=== PATIENT | male | born 1960 | race Caucasian/White ===

== ENCOUNTER 2017-12-28 04:16 | Inpatient (IN) ==
[2017-12-28] MEDS ORDERED: Naloxone 0.4 MG/ML INJ IVP PRN (07:54)
[2017-12-28] MEDS ORDERED: *HR* OxyCODONE Immed Rel 5 MG TABLET PO PRN (07:54)
[2017-12-28] MEDS ORDERED: *HR* HYDROcodone/Acet 5/325 mg TABLET PO PRN (07:54)
--- NOTE | 2017-12-28 07:56 | Internal Med History&Physical ---
Date of Encounter: 12/28/17 Time of Encounter: 08:48 Internal Medicine - H&P: HPI Chief complaint: R flank pain Admitted From: Hospital to Hospital Transfer Plans for Post Hospital Care: Home History of present illness: Mr. Vidal is a 57 year old male with no significant PMH who presented to [facility] with R flank pain associated with nausea, vomiting and diaphoresis. He reports a prior hx of kidney stones, but no intervention. He was in his usual state of health till the day of presentation to outside facility when he developed sudden R sided flank pain, radiating to the groin, severe 8-10/10, with no known aggravating or relieving factors. He reports associated nausea and vomiting, no abdominal pain, no diarrhea, no chest pain, no shortness of breath. His urine is very concentrated but he has had no nida hematuria. he denies neurologic symptoms ROS is non contributory Work up at outside facility : Leukocytosis with left shift, WBC 13, Hb stable, Chem with CHIQUI, BUN/Cr 23/1.63, BUN/Cr ratio 13. LFT unremarkable, Abd/pelvis CT: 1mm obstructing distal right ureteral 1mm with mild ureterectiasis and right renal pelvicaliectasis UA: hemarturia, , negative leukocyte esterase, negative nitrites Internal Medicine - H&P: Meds Aspirin [Lo-Dose Aspirin EC] 81 mg PO DAILY 12/28/17 [History] Glucosamn/Condroitn/C/Mn/[place] [Cvs Glucosamine Chondroit Cplt] 1 tab PO DAILY 12/28/17 [History] Multivitamin [One Daily Multivitamin] 1 tab PO DAILY 12/28/17 [History] Naproxen Sodium [Aleve] 440 mg PO DAILY 12/28/17 [History] [place]-3/Dha/Epa/Fish Oil [Fish Oil 1,000 mg Softgel] 1 cap PO DAILY 12/28/17 [ History] 3 Allergy/AdvReac Type Severity Reaction Status Date / Time No Known Allergies Allergy Verified 12/28/17 10:50 All Systems PM: A 10-system review of systems was performed and is negative for pertinent findings except as documented above in the HPI. - Constitutional Constitutional: no chills, no fever(s), no night sweats - EENT Eyes: as per HPI Ears: no ear discharge, no ear pain, no tinnitus Nose, mouth and throat: no dysphagia, no nasal discharge, no neck pain, no sore throat - Cardiovascular Cardiovascular ROS IM: no chest pain, no diaphoresis, no dyspnea, no lightheadedness, no palpitations, no syncope - Respiratory Respiratory: no cough, no dyspnea, no wheezing, no excessive phlegm production - Gastrointestinal Gastrointestinal: no abdominal pain, no diarrhea, no hematemesis, no hematochezia, no melena, no nausea, no vomiting - Genitourinary Genitourinary ROS male: as per HPI - Musculoskeletal Musculoskeletal ROS IM: no numbness, no tingling - Integumentary Integumentary IM: no rash, no unusual bruising - Neurological Neurological ROS: no confusion, no convulsions, no focal weakness, no numbness, no tingling, no tremor(s) - Hematologic/Lymphatic Hematologic/Lymphatic: no easy bruising - Constitutional General appearance: Present: A&O X 3, pleasant, no acute distress - Head Head exam: Present: atraumatic - Eye Eye exam: Present: PERRL, conjuntiva pink, sclera anicteric - ENT ENT exam: Present: mucous membranes moist - Neck Neck exam general surgery: Present: normal inspection - Respiratory Respiratory exam: Present: CTAB. Absent: accessory muscle use, rales, rhonchi, wheezes - Cardiovascular Cardiovascular exam: Present: RRR, +S1, +S2. Absent: diastolic murmur, gallop, rubs, systolic murmur - GI/Abdominal GI/Abdominal exam: Present: normal bowel sounds, soft, no peritoneal signs. Absent: distended, tenderness - Extremities Exam Extremities exam: Present: warm, radial pulses palpable and symmetrical. Absent : calf tenderness, cyanotic, pedal edema - Neurological Exam Neurological exam: Present: alert, CN II-XII intact, oriented X3, no focal deficits. Absent: pronater drift, facial droop, speech deficit - Skin Skin exam: Present: dry, intact Internal Med - H&P Results - Labs CBC & Chem 7: 12/28/17 08:17 18 08:17 - Assessment and plan (1) CHIQUI (acute kidney injury) Current Visit: Yes Status: Acute Assessment and plan: Post-renal secondary to kidney stones Continue IVF hydration Labs here show Cr 1.74, BUN 26. K acceptable Strict I/Os Avoid nephrotoxins (2) Hydronephrosis Current Visit: Yes Status: Acute Assessment and plan: Urology consult IVF and pain control Keep NPO for procedure Qualifiers: Hydronephrosis type: with ureteral calculous obstruction Qualified Code(s) : N13.2 - Hydronephrosis with renal and ureteral calculous obstruction (3) Ureteral calculus, right Current Visit: Yes Status: Acute Assessment and plan: as above - Time Spent With Patient Total time spent is greater than 50% in coordination of care (as documented) at patient's floor/unit and/or counseling patient:
[2017-12-28] MEDS ORDERED: Ondansetron 4 MG/2 ML VIAL IVP PRN (08:31)
[2017-12-28 09:02] LABS: Basophils % 0.1 %; Eosinophils % 0.2 %; Hematocrit 43.3 % (37.5-50.1); Hemoglobin 15.1 g/dL (12.9-16.9); Immature Granulocytes % 0.3 % (0-4); Lymphocytes # 1.5 K/mcL (0.6-4.6); Lymphocytes % 10.8 %; Mean Corpuscular HGB Conc 34.9 g/dL (31.6-35.5); Mean Corpuscular Hemoglobin 31.2 pg (28.0-33.3); Mean Corpuscular Volume 89.5 fL (83.0-100.0); Mean Platelet Volume 9.4 fL (9.4-12.4); Monocytes # 1.8 K/mcL (0.0-1.3); Monocytes % 12.4 %; Neutrophils # 10.8 K/mcL (1.6-8.9); Platelet Count 226 K/mcL (140-400); Red Blood Count 4.84 M/mcL (4.19-5.50); Red Cell Distribution Width 13.1 % (11.5-14.5); Segmented Neutrophils % 76.2 %
[2017-12-28] MEDS: 0.9 % Sodium Chloride 1,000 ML IVC SCH ×2 (09:18→17:59)
[2017-12-28] MEDS: OXYCODONE Oral CONC 10 MG/0.5 ML ORAL.SYG SL PRN (09:18)
[2017-12-28 09:19] LABS: Potassium 4.3 mEq/L (3.5-5.1)
[2017-12-28] MEDS: *HR* Heparin 5,000 UNIT/ML VIAL SQ SCH (16:55)
--- NOTE | 2017-12-28 18:11 | Urology - Consult Note ---
Date of Encounter: 12/28/17 Time of Encounter: 18:08 - Assessment and Plan (1) Ureteral calculus, right Current Visit: Yes Status: Acute Assessment and plan: Patient has a 1 mm distal ureteral stone. his symptoms suggest he may have passed the stone. We will recheck labs in the morning but at this time will likely cancel the surgery and the last his symptoms return overnight. The plan was to perform a ureteroscopic stone extraction in the morning. I do not feel the patient is septic or had UTI. White blood cell count elevation is likely reactive Urology CN:HPI Consult date: 12/28/17 Reason for consult Urology: Hydronephrosis History of present illness: 57-year-old male. Transfer from [facility]. 1 mm distal ureteral stone. He states he feels great at this time and believes he may have passed the stone. All pain and symptoms resolved. He is scheduled for stone extraction tomorrow morning. He does have a history of stones. Past Med Surg Social Fam HX - Past Medical History Medical history: no medical history Psychiatric history: no psych history - Past Surgical History Surgical History: no surgical history - Social History Smoking Status: Never smoker Smokeless Tobacco Status: Yes Alcohol use: none Drug use: none Medications and Allergies Aspirin [Lo-Dose Aspirin EC] 81 mg PO DAILY 12/28/17 [History] Glucosamn/Condroitn/C/Mn/[place] [Cvs Glucosamine Chondroit Cplt] 1 tab PO DAILY 12/28/17 [History] Multivitamin [One Daily Multivitamin] 1 tab PO DAILY 12/28/17 [History] Naproxen Sodium [Aleve] 440 mg PO DAILY 12/28/17 [History] [place]-3/Dha/Epa/Fish Oil [Fish Oil 1,000 mg Softgel] 1 cap PO DAILY 12/28/17 [ History] 3 Allergy/AdvReac Type Severity Reaction Status Date / Time No Known Allergies Allergy Verified 12/28/17 10:50 Review of Systems - Constitutional no chills, no fever(s) - EENT Nose, mouth and throat: no dizziness - Cardiovascular no chest pain - Respiratory no cough - Gastrointestinal no abdominal pain - Genitourinary no dysuria, no hematuria - Musculoskeletal no back pain - Integumentary no erythema - Neurological no confusion - Psychiatric no anxiety - Hematologic/Lymphatic no easy bleeding Exam Initial Vital Signs Temp Pulse Resp BP Pulse Ox 98.5 F 46 14 165/75 98 12/28/17 08:40 12/28/17 08:40 12/28/17 08:40 12/28/17 08:40 12/28/17 08:40 - General physical appearance Present: well developed, no distress - Eyes Present: PERRL, conjunctiva is clear - ENT Present: normal nares - Neck Present: no masses - Respiratory Present: normal respiratory effort - Cardiovascular Cardiovascular exam IM: RRR - Abdomen Abdomen: Present: soft - Integumentary Present: no rash, no abnormal pigmentation - Neurologic Present: normal coordination. Absent: disoriented, confused - Musculoskeletal Present: normal gait - Additional Findings No CVA tenderness Urology Results - Labs 12/28/17 08:17 12/28/17 08:17 Abnormal lab results WBC 14.2 K/mcL (4.3-11.1) H 12/28/17 08:17 Neutrophils # 10.8 K/mcL (1.6-8.9) H 12/28/17 08:17 Monocytes # 1.8 K/mcL (0.0-1.3) H 12/28/17 08:17 Carbon Dioxide 22 mEq/L (23-29) L 12/28/17 08:17 BUN 26 mg/dL (6-20) H 12/28/17 08:17 Creatinine 1.74 mg/dL (0.70-1.30) H 12/28/17 08:17 Est GFR ( Amer) 50 (> 60) L 12/28/17 08:17 Est GFR (Non-Af Amer) 41 (> 60) L 12/28/17 08:17 Glucose 114 mg/dL (70-105) H 12/28/17 08:17 Diabetes panel 12/28/17 Range/Units 08:17 Sodium 137 (136-145) mEq/L Potassium 4.3 (3.5-5.1) mEq/L Chloride 105 (98-107) mEq/L Carbon Dioxide 22 L (23-29) mEq/L BUN 26 H (6-20) mg/dL Creatinine 1.74 H (0.70-1.30) mg/dL Glucose 114 H (70-105) mg/dL Calcium 9.0 (8.6-10.3) mg/dL Calcium panel 12/28/17 Range/Units 08:17 Calcium 9.0 (8.6-10.3) mg/dL Pituitary panel 12/28/17 Range/Units 08:17 Sodium 137 (136-145) mEq/L Potassium 4.3 (3.5-5.1) mEq/L Chloride 105 (98-107) mEq/L Carbon Dioxide 22 L (23-29) mEq/L BUN 26 H (6-20) mg/dL Creatinine 1.74 H (0.70-1.30) mg/dL Glucose 114 H (70-105) mg/dL Calcium 9.0 (8.6-10.3) mg/dL Adrenal panel 12/28/17 Range/Units 08:17 Sodium 137 (136-145) mEq/L Potassium 4.3 (3.5-5.1) mEq/L Chloride 105 (98-107) mEq/L Carbon Dioxide 22 L (23-29) mEq/L BUN 26 H (6-20) mg/dL Creatinine 1.74 H (0.70-1.30) mg/dL Glucose 114 H (70-105) mg/dL Calcium 9.0 (8.6-10.3) mg/dL All other labs normal. Consult Discharge Plan - Plan Referrals: NONE,PCP [Primary Care Provider] -
--- NOTE | 2017-12-28 22:04 | Anesthesia Evaluation PreOp ---
Date of Encounter: 12/28/17 - Past History Planned Operation: Right USE Cardiac History: Denies any Significant Hx Pulmonary History: Denies Any Significant HX LUNCH COOK History: Denies Any Significant HX Other Medical History: Renal (stones, ann marie, hydronephrosis) Anesthesia History: Past Anesthesia (no surgical history) Alcohol Use: none Drug use: none Medications and Allergies Aspirin [Lo-Dose Aspirin EC] 81 mg PO DAILY 12/28/17 [History] Glucosamn/Condroitn/C/Mn/[place] [Cvs Glucosamine Chondroit Cplt] 1 tab PO DAILY 12/28/17 [History] Multivitamin [One Daily Multivitamin] 1 tab PO DAILY 12/28/17 [History] Naproxen Sodium [Aleve] 440 mg PO DAILY 12/28/17 [History] [place]-3/Dha/Epa/Fish Oil [Fish Oil 1,000 mg Softgel] 1 cap PO DAILY 12/28/17 [ History] 3 Allergy/AdvReac Type Severity Reaction Status Date / Time No Known Allergies Allergy Verified 12/28/17 10:50 - Meds/Allergy Pre-op Review Medications Reviewed: Yes Allergies Reviewed: Yes Beta Blockers on Current Med List: No Anesthesia Results - Labs 12/28/17 08:17 12/28/17 08:17 Anesthesia Exam Last Vital Signs Temp 98.5 F 12/28/17 18:38 Pulse 55 12/28/17 18:38 Resp 16 12/28/17 18:38 BP 154/71 12/28/17 18:38 Pulse Ox 94 12/28/17 18:38 Weight: 105 kg Anesthesia Assess/Plan ASA Score: 2 Anesthetic Plan: General Monitoring Plan: Standard Monitors Recovery Plan: PACU
--- NOTE | 2017-12-29 06:00 | Urology Progress Note ---
Date of Encounter: 12/29/17 Time of Encounter: 05:59 - Assessment and Plan (1) Ureteral calculus, right Current Visit: Yes Status: Acute Assessment and plan: pt believes he passed the stone. likely canceling the case this AM. waiting on BUN/CR before we make that decision. should be able to discharge if CR improves. Progress Note Subjective: feels better Narrative: pt believes he passed the stone Objective Initial Vital Signs Temp Pulse Resp BP Pulse Ox 98.5 F 46 14 165/75 98 12/28/17 08:40 12/28/17 08:40 12/28/17 08:40 12/28/17 08:40 12/28/17 08:40 - General physical appearance Present: no distress - Labs 12/28/17 08:17 12/28/17 08:17 Diabetes panel 12/28/17 Range/Units 08:17 Sodium 137 (136-145) mEq/L Potassium 4.3 (3.5-5.1) mEq/L Chloride 105 (98-107) mEq/L Carbon Dioxide 22 L (23-29) mEq/L BUN 26 H (6-20) mg/dL Creatinine 1.74 H (0.70-1.30) mg/dL Glucose 114 H (70-105) mg/dL Calcium 9.0 (8.6-10.3) mg/dL Calcium panel 12/28/17 Range/Units 08:17 Calcium 9.0 (8.6-10.3) mg/dL Pituitary panel 12/28/17 Range/Units 08:17 Sodium 137 (136-145) mEq/L Potassium 4.3 (3.5-5.1) mEq/L Chloride 105 (98-107) mEq/L Carbon Dioxide 22 L (23-29) mEq/L BUN 26 H (6-20) mg/dL Creatinine 1.74 H (0.70-1.30) mg/dL Glucose 114 H (70-105) mg/dL Calcium 9.0 (8.6-10.3) mg/dL Adrenal panel 12/28/17 Range/Units 08:17 Sodium 137 (136-145) mEq/L Potassium 4.3 (3.5-5.1) mEq/L Chloride 105 (98-107) mEq/L Carbon Dioxide 22 L (23-29) mEq/L BUN 26 H (6-20) mg/dL Creatinine 1.74 H (0.70-1.30) mg/dL Glucose 114 H (70-105) mg/dL Calcium 9.0 (8.6-10.3) mg/dL Consult Discharge Plan - Plan Referrals: NONE,PCP [Primary Care Provider] - Dexter Holden MD [Partnered Physician] -
[2017-12-29 06:01] LABS: Basophils # 0.1 K/mcL (0.0-0.2); Basophils % 0.6 %; Eosinophils # 0.1 K/mcL (0.0-0.6); Eosinophils % 0.8 %; Hematocrit 40.2 % (37.5-50.1); Immature Granulocytes % 0.3 % (0-4); Lymphocytes # 1.3 K/mcL (0.6-4.6); Lymphocytes % 12.6 %; Mean Corpuscular HGB Conc 33.3 g/dL (31.6-35.5); Mean Corpuscular Hemoglobin 30.1 pg (28.0-33.3); Mean Corpuscular Volume 90.3 fL (83.0-100.0); Mean Platelet Volume 9.6 fL (9.4-12.4); Monocytes # 1.3 K/mcL (0.0-1.3); Monocytes % 12.2 %; Neutrophils # 7.7 K/mcL (1.6-8.9); Platelet Count 190 K/mcL (140-400); Red Blood Count 4.45 M/mcL (4.19-5.50); Red Cell Distribution Width 13.1 % (11.5-14.5); Segmented Neutrophils % 73.5 %
[2017-12-29 06:03] LABS: Hemoglobin 13.4 g/dL (12.9-16.9)
[2017-12-29] MEDS: *HR* Heparin 5,000 UNIT/ML VIAL SQ SCH ×2 (06:21→18:12)
[2017-12-29 06:26] LABS: BUN/Creatinine Ratio 17 (6-26); Blood Urea Nitrogen 23 mg/dL (6-20); Calcium 8.8 mg/dL (8.6-10.3); Carbon Dioxide 23 mEq/L (23-29); Chloride 108 mEq/L (98-107); Glucose 137 mg/dL (70-105); Osmolality,Calculated 292 (280-300); Potassium 4.4 mEq/L (3.5-5.1); Sodium 138 mEq/L (136-145); eGFR For African Americans > 60 (> 60); eGFR For Non-African Americans 54 (> 60)
[2017-12-29] MEDS: Acetaminophen 325 MG TABLET PO PRN ×3 (08:17→21:58)
[2017-12-29] MEDS: Aspirin Enteric Coated 81 MG Tablet PO SCH (10:11)
[2017-12-29] MEDS: OXYCODONE Oral CONC 10 MG/0.5 ML ORAL.SYG SL PRN (13:49)
--- NOTE | 2017-12-29 16:15 | Internal Med Progress Note ---
Date of Encounter: 12/29/17 Time of Encounter: 09:35 - Assessment and plan (1) Abdominal pain Current Visit: Yes Status: Acute Assessment and plan: Seemed to have passed R ureteric stone but has recurrence of RLQ pain, states that it feels different from prior episodes of kidney stones however not relieved with miralax and BM ?appendicitis ?recurrent obstructive uropathy from residual stone, repeat CT abdo/pelvis stat Qualifiers: Abdominal location: right lower quadrant Qualified Code(s): R10.31 - Right lower quadrant pain (2) Hydronephrosis Current Visit: Yes Status: Acute Assessment and plan: CT from OSH showed distal R ureteral stone with mild R ureterectasis and pelvicaliectasis was initially scheduled for stone extraction but he may have passed it Cr, WBC improved monitor Qualifiers: Hydronephrosis type: with ureteral calculous obstruction Qualified Code(s) : N13.2 - Hydronephrosis with renal and ureteral calculous obstruction (3) Ureteral calculus, right Current Visit: Yes Status: Acute Assessment and plan: as above (4) CHIQUI (acute kidney injury) Current Visit: Yes Status: Acute Assessment and plan: improved, encourage oral intake (5) DVT prophylaxis Current Visit: Yes Status: Acute Assessment and plan: sq heparin - Time Spent With Patient Total time spent is greater than 50% in coordination of care (as documented) at patient's floor/unit and/or counseling patient: - Subjective Interval history: Did not have any pain when he was seen by urologist in the morning but he now has RLQ pain that feels different from his previous episodes of kidney stones. Sharp, non-radiating, 8/10, no aggravating/relieving factors. Lenore like he was constipated for which he tried miralax but did not have any relief yet. He was also having mild diaphoresis due to pain as well. No N/V, fever/chills. - Constitutional Vitals: Temp Pulse Resp BP Pulse Ox 97.9 F 51 18 184/95 99 12/29/17 15:38 12/29/17 15:38 12/29/17 15:38 12/29/17 15:38 12/29/17 15:38 General appearance: Present: A&O X 3, pleasant, no acute distress Exam: General: Alert and oriented, in mild distress due to pain HEENT:EOM, pupils equal, round, and reactive. Cardiovascular:Normal S1 & S2, no murmurs or gallops. No JVD. Pulse regular. Lungs:Normal breath sounds, no wheezes or crackles. Abdomen:Soft, RLQ tenderness, voluntary guarding, no rebound. Extremities:No deformity, no edema or tenderness, no joint swelling. Rest of the physical exam is non-contributory Internal Medicine: Result - Labs CBC & Chem 7: 12/29/17 05:27 12/29/17 05:27 Labs: Short CBC 12/29/17 Range/Units 05:27 WBC 10.5 (4.3-11.1) K/mcL Hgb 13.4 D (12.9-16.9) g/dL Hct 40.2 (37.5-50.1) % Plt Count 190 (140-400) K/mcL Neutrophils # 7.7 (1.6-8.9) K/mcL BMP 12/29/17 05:27 Sodium 138 Potassium 4.4 Chloride 108 H Carbon Dioxide 23 BUN 23 H Creatinine 1.36 H Glucose 137 H Calcium 8.8 Consult Discharge Plan - Plan Referrals: NONE,PCP [Primary Care Provider] - Dexter Holden MD [Partnered Physician] -
[2017-12-30] MEDS: OXYCODONE Oral CONC 10 MG/0.5 ML ORAL.SYG SL PRN (00:26)
[2017-12-30 02:25] LABS: Basophils % 0.3 %; Eosinophils # 0.1 K/mcL (0.0-0.6); Eosinophils % 0.8 %; Hematocrit 39.5 % (37.5-50.1); Hemoglobin 13.7 g/dL (12.9-16.9); Immature Granulocytes % 0.3 % (0-4); Lymphocytes # 1.6 K/mcL (0.6-4.6); Lymphocytes % 13.2 %; Mean Corpuscular HGB Conc 34.7 g/dL (31.6-35.5); Mean Corpuscular Hemoglobin 30.9 pg (28.0-33.3); Mean Corpuscular Volume 89.2 fL (83.0-100.0); Mean Platelet Volume 9.8 fL (9.4-12.4); Monocytes # 1.7 K/mcL (0.0-1.3); Monocytes % 13.9 %; Neutrophils # 8.5 K/mcL (1.6-8.9); Platelet Count 186 K/mcL (140-400); Red Blood Count 4.43 M/mcL (4.19-5.50); Red Cell Distribution Width 12.7 % (11.5-14.5); Segmented Neutrophils % 71.5 %
[2017-12-30 02:42] LABS: Calcium 8.9 mg/dL (8.6-10.3); Potassium 3.9 mEq/L (3.5-5.1)
[2017-12-30] MEDS: *HR* Heparin 5,000 UNIT/ML VIAL SQ SCH (05:25)
--- NOTE | 2017-12-30 09:34 | Urology Progress Note ---
Date of Encounter: 12/30/17 Time of Encounter: 09:33 - Assessment and Plan (1) Ureteral calculus, right Current Visit: Yes Status: Acute Assessment and plan: CT scan yesterday confirms a stone is still present. We will proceed with stone extraction today. Procedure discussed and consent signed. Progress Note Subjective: still having pain Objective Initial Vital Signs Temp Pulse Resp BP Pulse Ox 98.5 F 46 14 165/75 98 12/28/17 08:40 12/28/17 08:40 12/28/17 08:40 12/28/17 08:40 12/28/17 08:40 - General physical appearance Present: no distress - Labs 12/30/17 01:44 12/30/17 01:44 Diabetes panel 12/30/17 Range/Units 01:44 Sodium 136 (136-145) mEq/L Potassium 3.9 (3.5-5.1) mEq/L Chloride 105 (98-107) mEq/L Carbon Dioxide 25 (23-29) mEq/L BUN 18 (6-20) mg/dL Creatinine 1.58 H (0.70-1.30) mg/dL Glucose 121 H (70-105) mg/dL Calcium 8.9 (8.6-10.3) mg/dL Calcium panel 12/30/17 Range/Units 01:44 Calcium 8.9 (8.6-10.3) mg/dL Pituitary panel 12/30/17 Range/Units 01:44 Sodium 136 (136-145) mEq/L Potassium 3.9 (3.5-5.1) mEq/L Chloride 105 (98-107) mEq/L Carbon Dioxide 25 (23-29) mEq/L BUN 18 (6-20) mg/dL Creatinine 1.58 H (0.70-1.30) mg/dL Glucose 121 H (70-105) mg/dL Calcium 8.9 (8.6-10.3) mg/dL Adrenal panel 12/30/17 Range/Units 01:44 Sodium 136 (136-145) mEq/L Potassium 3.9 (3.5-5.1) mEq/L Chloride 105 (98-107) mEq/L Carbon Dioxide 25 (23-29) mEq/L BUN 18 (6-20) mg/dL Creatinine 1.58 H (0.70-1.30) mg/dL Glucose 121 H (70-105) mg/dL Calcium 8.9 (8.6-10.3) mg/dL Consult Discharge Plan - Plan Referrals: Dexter Holden MD [Partnered Physician] -
[2017-12-30] MEDS: Aspirin Enteric Coated 81 MG Tablet PO SCH (09:51)
[2017-12-30] MEDS ORDERED: Famotidine 20 MG/2 ML VIAL ONE (11:13)
[2017-12-30] MEDS ORDERED: Acetaminophen IV 1,000 MG/100 ML INFUS..BTL ONE (11:13)
--- NOTE | 2017-12-30 11:26 | Anesthesia Evaluation PreOp ---
Date of Encounter: 12/30/17 Time of Encounter: 11:30 - Past History Planned Operation: Rt USE Cardiac History: Denies any Significant Hx Pulmonary History: Denies Any Significant HX [employer] CLAIM [employer]AMINER History: Denies Any Significant HX Other Medical History: Denies Any Significant HX Anesthesia History: No Prior Anesthetic Complications Alcohol Use: none Drug use: none Medications and Allergies Aspirin [Lo-Dose Aspirin EC] 81 mg PO DAILY 12/28/17 [History] Glucosamn/Condroitn/C/Mn/[place] [Cvs Glucosamine Chondroit Cplt] 1 tab PO DAILY 12/28/17 [History] Multivitamin [One Daily Multivitamin] 1 tab PO DAILY 12/28/17 [History] Naproxen Sodium [Aleve] 440 mg PO DAILY 12/28/17 [History] [place]-3/Dha/Epa/Fish Oil [Fish Oil 1,000 mg Softgel] 1 cap PO DAILY 12/28/17 [ History] 3 Allergy/AdvReac Type Severity Reaction Status Date / Time No Known Allergies Allergy Verified 12/28/17 10:50 - Meds/Allergy Pre-op Review Medications Reviewed: Yes Allergies Reviewed: Yes Beta Blockers on Current Med List: No Anesthesia Results - Labs 12/30/17 01:44 12/30/17 01:44 Anesthesia Exam O2 Sat Weight 105.75 kg O2 Sat by Pulse Oximetry 95 O2 Sat by Pulse Oximetry 96 O2 Sat by Pulse Oximetry 97 O2 Sat by Pulse Oximetry 98 O2 Sat by Pulse Oximetry 99 Vital Signs Temp Pulse Resp BP Pulse Ox 98.5 F 46 14 165/75 98 12/28/17 08:40 12/28/17 08:40 12/28/17 08:40 12/28/17 08:40 12/28/17 08:40 Height: 6'1 Weight: 233 lbs NPO (# of Hours): MN Pain Scale: 0 - HEENT Pupil (Motor): Pupils equal, EOMI Mallampati: II Teeth: Normal Oral Opening: Greater than 3 - [employer] CLAIM EXAMINER LOC: Oriented [employer] CLAIM EXAMINER Motor: Normal RUE, Normal LUE, Normal RLE, Normal LLE, Normal Face [employer] CLAIM [employer]AMINER Sensory: Normal: RUE, LUE, RLE, LLE, Face - Cardiac Rhythm: Regular Murmur: None JVD: No Carotid Bruit: No - Pulmonary Breath Sounds: bilateral Clear Respiratory Effort: Symmetrical Anesthesia Assess/Plan ASA Score: 1 Modified Clifford Scale for Level of Consciousness: Cooperative, oriented, and tranquil Anesthetic Plan: General Monitoring Plan: Standard Monitors Recovery Plan: PACU (Discussed GA, agrees to proceed)
[2017-12-30] MEDS ORDERED: Ondansetron 4 MG/2 ML VIAL ONE (11:45)
[2017-12-30] MEDS ORDERED: Dexamethasone 4 MG/ML VIAL ONE (11:45)
[2017-12-30] MEDS ORDERED: Lidocaine -MPF 2% 2 ML VIAL ONE (11:45)
[2017-12-30] MEDS ORDERED: *HR* Propofol 200 MG/20 ML VIAL IVP ONE (11:45)
[2017-12-30] MEDS ORDERED: *HR* FentaNYL (PF) 100 MCG/2 ML VIAL ONE (11:45)
--- NOTE | 2017-12-30 11:55 | Operative Note ---
Date of procedure: 12/30/17 Pre-op diagnosis: right distal ureteral stone Post-op diagnosis: same Procedure: right ureteroscopic stone extraction Retrograde pyelogram and stent Anesthesia: GETA Surgeon: Dexter Holden Was there an family law legal assistant present: No Estimated blood loss (cc): 0 Specimen: Stone Condition: stable Disposition: PACU Procedure in Detail: PROCEDURE IN DETAIL: Patient was taken back to the operating room, positioned supine on the operating table. Anesthesia was applied without complication. They were moved into dorsal lithotomy. Careful attention was maintained to cushion all pressure points for patient's safety. They were prepped and draped in sterile fashion. Time-out was performed with the proper patient and procedure. A 21-Belgian rigid cystoscope was inserted into the bladder without difficulty. Systematic examination of bladder revealed no abnormalities. I was unable to cannulate the UO with the 5 croatian bc the stone was so impacted. no retrograde was performed. . At that point, a zip wire was placed through the 5 -Belgian and with some difficulty was able to navigate around the stone. An 8- 10 dilator was then placed over the zip wire to passively dilate the ureteral orifice. A semi-rigid ureteroscope was carefully inserted into the bladder and guided into the ureteral oriface. The small stone was extracted with a 1.9 tipless basket. All stone in the ureter was removed. A 4.8 x 26 ureteral stent was placed over the zip wire under fluoroscopy without complication. The bladder was drained. The stone was sent for stone analysis. The string was left attached to the stent and secured to the patient for easy removal in approximately 72 hours
--- NOTE | 2017-12-30 11:56 | Event Note ---
Date of Encounter: 12/30/17 Time of Encounter: 11:56 Stone was successfully extracted. Okay to discharge from urology standpoint today. Patient has a ureteral stent in place which is attached to a string that is taped to the penis. It is normal for him to have some urgency, frequency, burning and light blood in the urine while the stent is in place. Patient can remove the stent at home on Monday or Monday by pulling on the string until the entire stent is removed. If he is unable to remove the stent at home he will need to come to the urology office one of these days. ok to followup in 4-6 weeks or pRN sooner.
[2017-12-30] MEDS ORDERED: Ondansetron 4 MG/2 ML VIAL IVP PRN (12:06)
[2017-12-30] MEDS ORDERED: Acetaminophen 325 MG TABLET PO PRN (12:06)
[2017-12-30] MEDS ORDERED: OXYCODONE Oral CONC 10 MG/0.5 ML ORAL.SYG SL PRN (12:06)
[2017-12-30] MEDS ORDERED: Naloxone 0.4 MG/ML INJ IVP PRN (12:06)
[2017-12-30] MEDS ORDERED: *HR* HYDROcodone/Acet 5/325 mg TABLET PO PRN (12:06)
--- NOTE | 2017-12-30 13:08 | Anesthesia Evaluation Post Op ---
Date of Encounter: 12/30/17 Time of Encounter: 13:08 - Vital Signs Vital Signs: Vital Signs/O2 Sat, Most Current Temp Pulse Resp BP Pulse Ox 97.8 F 49 16 120/79 95 12/30/17 12:37 12/30/17 12:57 12/30/17 12:57 12/30/17 12:57 12/30/17 12:57 - Lungs Lungs: Clear Ascult./Percussion - Airway Airway: Non-obstructed - Cardiovascular Regular Rate - Mental Status Mental Status: Alert & Oriented, Answers Appropriately - Pain Pain Scale: 0 Pain Scale used: Numeric (1 - 10) - Nausea Vomiting Nausea Vomiting: Not Present - Hydration Hydration: Ice chips - Discharge PostOp Status: Transfer Patient to floor Attestation: I have assessed this patient and find they meet discharge criteria.
[2017-12-30] MEDS ORDERED: CeFAZolin Syr 2,000MG/20 ML 2,000 MG/20 ML SYRINGE IVPB ONE (13:30)
--- NOTE | 2017-12-30 14:06 | Discharge Summary ---
- NOTES TO OUTPATIENT PROVIDER Notes to Outpatient Provider: Cr fluctuating, partially attributed to obstructive uropathy but unsure whether he has underlying CKD. Follow up with repeat BMP Orders not resulted at time of discharge: Pending orders 12/30/17 XR KUB [XR] Routine 12/30/17 12:34 Surgical Pathology [PTH] Routine Date of Encounter: 12/30/17 Time of Encounter: 14:00 - Discharge Diagnosis (1) Ureteral calculus, right Priority: Primary Status: Acute (2) Hydronephrosis Priority: Secondary Status: Acute Qualifiers: Hydronephrosis type: with ureteral calculous obstruction Qualified Code(s) : N13.2 - Hydronephrosis with renal and ureteral calculous obstruction (3) CHIQUI (acute kidney injury) Priority: Secondary Status: Acute (4) DVT prophylaxis Priority: Secondary Status: Acute Hospital course: Mr. Vidal is a 57 year old male presented to the ED with R loin to groin pain. Diagnosed with distal R ureteric stone causing hydronephrosis. Initially he appeared to have passed the stone spontaneously but pain recurred and eventually underwent stone extraction on 12/30 uneventfully. Patient has a ureteral stent in place which is attached to a string that is taped to the penis. He was advised to remove the stent at home on /Mon or if he is unable to do so, he can come to the urology office to get it done. To follow up with urology in 4-6 weeks or PRN. His Cr on admission was 1.74 which improved to 1.36 but was bumped upto 1.58 on the day of discharge. Could be at least partially attributed to obstructive uropathy but I wonder if there is underlying undiagnosed CKD. For repeat BMP in 1 week and follow up with PCP. Discharge discussed with: patient - Time Spent with Patient Total time spent providing and/or coordinating discharge services: Greater than 30 minutes - Discharge Medications Prescriptions: Tramadol HCl [Ultram] 50 mg PO TID PRN 4 Days #12 tab PRN Reason: Pain Home Medications: Aspirin [Lo-Dose Aspirin EC] 81 mg PO DAILY 12/28/17 [History] Glucosamn/Condroitn/C/Mn/[place] [[facility] Glucosamine [place] Cplt] 1 tab PO DAILY 12/28/17 [History] Multivitamin [One Daily Multivitamin] 1 tab PO DAILY 12/28/17 [History] [place]-3/Dha/Epa/Fish Oil [Fish Oil 1,000 mg Softgel] 1 cap PO DAILY 12/28/17 [ History] Tramadol HCl [Ultram] 50 mg PO TID PRN 4 Days #12 tab 12/30/17 [Rx] Allergies/Adverse Reactions: 3 Allergy/AdvReac Type Severity Reaction Status Date / Time No Known Allergies Allergy Verified 12/28/17 10:50 Date of admission: 12/28/17 12:14 Primary care physician: PCP NONE - Constitutional Vitals: Temp Pulse Resp BP Pulse Ox 98.4 F 48 16 134/84 96 12/30/17 13:26 12/30/17 13:26 12/30/17 13:26 12/30/17 13:26 12/30/17 13:26 General appearance: Present: A&O X 3, pleasant, no acute distress Exam: General: Alert and oriented, not in distress HEENT:EOM, pupils equal, round, and reactive. Cardiovascular:Normal S1 & S2, no murmurs or gallops. No JVD. Pulse regular. Lungs:Normal breath sounds, no wheezes or crackles. Abdomen:Soft, non-tender Extremities:No deformity, no edema or tenderness, no joint swelling. Rest of the physical exam is non-contributory - Patient Status Disposition: Home, Self-Care Overall status at discharge: patient is back to baseline - Discharge Instructions Follow Up With: Dexter Holden MD [Partnered Physician] - - Diet and Activity Activity: resume usual activities as tolerated Diet: regular diet
[2017-12-30 15:41] VITALS: BP 144/83
[2017-12-31] MEDS ORDERED: Aspirin Enteric Coated 81 MG Tablet PO SCH (09:00)
== END 2017-12-30 16:10 | disposition home or self-care (01) | DRG 669 ==
LOC: 3ANU → SUATTDRO 12:14
PROVIDERS: ADMIT Family Medicine; ATTEND Internal Medicine